=== PATIENT | female | born 1985 | race Caucasian/White ===

== ENCOUNTER 2021-02-25 12:06 | Outpatient (CLI) | payer BC, SELFPAY ==
[2021-02-25 12:21] LABS: Basophils Absolute Auto 0.1 K/mm3 (0.0-0.1); Basophils Percent Auto 0.6 % (0.2-1.2); Eosinophils Absolute Auto 0.1 K/mm3 (0-0.3); Eosinophils Percent Auto 0.8 % (0-4.4); Hematocrit 39.9 % (37.0-47.0); Hemoglobin 12.9 g/dL (12.0-15.0); Immature Granulocyte Absolute 0.02 K/mm3 (0.00-0.031); Immature Granulocyte Percent A 0.2 % (0-0.5); Lymphocytes Absolute Auto 2.41 K/mm3 (0.9-3.2); Mean Corpuscular HGB Conc 32.3 g/dl (32-36); Mean Corpuscular Hemoglobin 30.8 pg (26-34); Mean Corpuscular Volume 95.2 fl (80-100); Mean Platelet Volume 9.1 fl (7.4-10.4); Monocytes Absolute Auto 0.6 K/mm3 (0.1-0.6); Monocytes Percent Auto 6.4 % (2.6-8.5); Neutrophils Absolute Auto 5.5 K/mm3 (1.3-6.7); Platelet Count Result 256 k/mm3 (150-375); Red Blood Count 4.19 M/mm3 (4.2-5.4); Red Cell Distribution Width 11.9 % (11.5-14.5); White Blood Count 8.6 K/mm3 (4.5-10.0)
[2021-02-25 12:33] LABS: Alanine Aminotransferase 13 U/L (4-35); Albumin Level 4.5 g/dL (3.5-5.1); Alkaline Phosphatase 61 U/L (38-126); Amylase 65 U/L (30-110); Anion Gap 9 mmol/L (8-16); Aspartate Amino Transferase 30 U/L (14-36); Bilirubin,Total 0.4 mg/dL (0.2-1.3); Blood Urea Nitrogen 7 mg/dL (7-17); Calcium 9.3 mg/dL (8.4-10.2); Carbon Dioxide 26 mmol/L (22-30); Chloride 105 mmol/L (98-107); Estimated Glomerular Filt Rate > 60; Glucose 85 mg/dL (65-105); Lipase 73 U/L (23-300); Potassium 4.2 mmol/L (3.4-5.0); Sodium 140 mmol/L (137-145)
== END 2021-02-25 12:07 | disposition home or self-care (01) ==
PROVIDERS: PCP Family Medicine; Visit Provider Nurse Practitioner Family
DX: R10.13 Epigastric pain (principal)
CPT/HCPCS: 36415; 80053; 82150; 83690; 85025

== ENCOUNTER 2021-02-25 12:26 | Outpatient (CLI) | payer BC, SELFPAY ==
--- NOTE | ~2021-02-25 | US_ITS ---
EXAMINATION: US abdomen complete DATE: 02/25/2021 13:11 INDICATION: Epigastric pain TECHNIQUE: Multiple grayscale and Doppler ultrasound images of the abdomen were obtained. COMPARISON: None available FINDINGS: The head and body of the pancreas are normal. The pancreatic tail is obscured by bowel gas. The liver is normal with normal echogenicity and echotexture. No surface nodularity. Normal hepatope kurtis flow in the main portal vein. The gallbladder is normal with no abnormal wall thickening, pericho lecystic fluid or stones. The normal common bile duct measures 5 mm. There was no sonographic Aguirre sign. The visualized portions of the aorta and inferior vena cava are normal. The right kidney measures 10.3 x 4.2 x 3.8 cm. The left kidney measures 9.9 x 4.3 x 5.3 cm. The kidne ys demonstrate normal parenchymal echogenicity. There is no hydronephrosis. The spleen is normal in a ppearance and measures 9.7 cm. IMPRESSION: 1. No sonographic correlate for the patient's symptoms. Reviewed, dictated and finalized at location A.
== END 2021-02-25 12:27 | disposition home or self-care (01) ==
LOC: ANHIMG 12:27
PROVIDERS: PCP Family Medicine; Visit Provider Nurse Practitioner Family
DX: R10.13 Epigastric pain (principal)
CPT/HCPCS: 76700

== ENCOUNTER 2022-04-10 09:47 | Outpatient (CLI) | payer BC, SELFPAY ==
[2022-04-10 11:28] LABS: Anion Gap 7 mmol/L (8-16); Blood Urea Nitrogen 9 mg/dL (7-17); Calcium 9.2 mg/dL (8.4-10.2); Carbon Dioxide 28 mmol/L (22-30); Chloride 100 mmol/L (98-107); Cholesterol 192 mg/dL (0-200); Estimated Glomerular Filt Rate > 60; Glucose 91 mg/dL (65-110); HDL Direct 96 mg/dL; Sodium 135 mmol/L (137-145); Triglycerides 63 mg/dL (<150)
[2022-04-10 11:36] LABS: Hemoglobin A1C 4.9 % (<5.7)
[2022-04-10 11:39] LABS: LDL Cholesterol Direct 66 mg/dL
[2022-04-10 11:58] LABS: Thyroid Stimulating Hormone 0.732 uIU/mL (0.465-4.680)
== END 2022-04-10 09:48 | disposition home or self-care (01) ==
PROVIDERS: PCP Family Medicine; Visit Provider Nurse Practitioner Family
DX: Z13.220 Encounter for screening for lipoid disorders (principal); Z13.1 Encounter for screening for diabetes mellitus; Z13.29 Encounter for screening for other suspected endocrine disorder
CPT/HCPCS: 36415; 80048; 80061; 83036; 84443

== ENCOUNTER 2022-09-03 15:58 | Outpatient (CLI) | payer BC, SELFPAY ==
--- NOTE | ~2022-09-03 | XR_ITS ---
EXAMINATION: XR chest 2V DATE: 09/03/2022 16:18 INDICATION: Chronic cough and shortness of breath TECHNIQUE: PA and lateral views of the chest are obtained. COMPARISON: None available FINDINGS: The lungs are free of acute opacities. No pleural effusion or pneumothorax. The cardiomedia stinal silhouette is normal. There is mild thoracic spondylosis. IMPRESSION: 1. No acute cardiopulmonary abnormality. Reviewed, dictated and finalized at location L. TMASTER
== END 2022-09-03 15:59 | disposition home or self-care (01) ==
PROVIDERS: PCP Family Medicine; Visit Provider Physician Assistant Medical
DX: R05.3 Chronic cough (principal)
CPT/HCPCS: 71046

== ENCOUNTER 2022-11-02 15:21 | Outpatient (CLI) | payer OTHER, SELFPAY ==
--- NOTE | ~2022-11-02 | US_ITS ---
US venous doppler [facility] DATE: 11/02/2022 16:12 INDICATION: Localized edema TECHNIQUE: Real-time and color flow imaging and Doppler analysis of the veins of the lower extremitie s COMPARISON: None FINDINGS: There is minimal thrombus along the anterior wall of the right common femoral vein but the lumen is largely patent, with normal augmentation and color flow signal otherwise. There is spontaneous and phasic flow, normal augmentation and color flow signal and normal compressio n of the deep veins of both lower extremities otherwise. The greater saphenous veins are patent. IMPRESSION: Minimal thrombus, possibly chronic, along the anterior wall of the right common femoral v ein without significant luminal stenosis No deep venous thrombosis of the lower extremities is noted otherwise Reviewed, dictated and finalized at Location A. Reviewed, dictated and finalized at location B. SIZE MACHINE OPERATOR IMPRESSION: Minimal thrombus, possibly chronic, along the anterior wall of the right common femoral vein without significant luminal stenosis No deep venous thrombosis of the lower extremities is noted otherwise
== END 2022-11-02 15:22 | disposition home or self-care (01) ==
LOC: ANHIMG 15:27
PROVIDERS: PCP Family Medicine; Visit Provider Nurse Practitioner Family
DX: R60.0 Localized edema (principal); I82.411 Acute embolism and thrombosis of right femoral vein
CPT/HCPCS: 93970

== ENCOUNTER 2022-12-19 08:55 | Outpatient (CLI) | payer OTHER, BC, SELFPAY ==
[2022-12-19 10:27] LABS: Anion Gap 4 mmol/L (8-16); Blood Urea Nitrogen 8 mg/dL (7-17); Calcium 9.6 mg/dL (8.4-10.2); Carbon Dioxide 34 mmol/L (22-30); Chloride 101 mmol/L (98-107); Estimated Glomerular Filt Rate > 60; Glucose 104 mg/dL (65-110); Sodium 139 mmol/L (137-145)
== END 2022-12-19 08:56 | disposition home or self-care (01) ==
LOC: ANHLAB 09:02
PROVIDERS: PCP Family Medicine; Visit Provider Nurse Practitioner Family
DX: R25.2 Cramp and spasm (principal)
CPT/HCPCS: 36415; 80048; 83735

== ENCOUNTER 2023-04-10 14:34 | Outpatient (CLI) | payer SELFPAY ==
--- NOTE | ~2023-04-10 | US_ITS ---
EXAMINATION: US venous doppler [facility] DATE: 04/10/2023 15:16 INDICATION: I82.90 - Acute embolism and thrombosis of unspecified vein . TECHNIQUE: Grayscale images without and with compression and Doppler images of the bilateral lower ex tremity veins were obtained. COMPARISON: 11/02/2022. FINDINGS: The right common femoral vein, profunda (deep) femoral vein, femoral vein, popliteal vein, peroneal v ein, posterior tibial veins, gastrocnemius vein, and greater saphenous vein are patent. The left common femoral vein, profunda (deep) femoral vein, femoral vein, popliteal vein, peroneal v ein, posterior tibial veins, gastrocnemius vein, and greater saphenous vein are patent. IMPRESSION: Patent bilateral lower extremity veins. No evidence of deep venous thrombosis. Reviewed, dictated and finalized at location K.
== END 2023-04-10 14:35 | disposition home or self-care (01) ==
PROVIDERS: PCP Family Medicine; Visit Provider Nurse Practitioner Family
DX: I82.90 Acute embolism and thrombosis of unspecified vein (principal)
CPT/HCPCS: 93970

== ENCOUNTER 2023-11-04 11:29 | Outpatient (CLI) | payer BC, SELFPAY ==
[2023-11-04 13:18] LABS: HIV 1/2 Ab P24 Ag Result Negative (Negative)
[2023-11-04 13:48] LABS: Hepatitis B Surface Antigen Negative (Negative)
[2023-11-04 14:05] LABS: Hepatitis C Virus Antibody Negative (Negative)
[2023-11-04 15:53] LABS: Rapid Plasma Reagin Non-Reactive (NonReactive)
== END 2023-11-04 11:30 | disposition home or self-care (01) ==
LOC: ANHLAB 11:30
PROVIDERS: PCP Family Medicine; Visit Provider Nurse Practitioner Family
DX: Z11.3 Encounter for screening for infections with a predominantly sexual mode of transmission (principal)
CPT/HCPCS: 36415; 86592; 86703; 86803; 87340; G0432

== ENCOUNTER 2024-09-10 09:09 | Outpatient (CLI) | payer BC, SELFPAY ==
--- NOTE | ~2024-09-10 | XR_ITS ---
EXAMINATION: XR chest 2V DATE: 09/10/2024 09:19 INDICATION: Tachycardia TECHNIQUE: frontal view of the chest was obtained. COMPARISON: Chest radiograph dated 09/03/2022 FINDINGS: The lungs remain clear with no focal airspace opacities, pulmonary edema, pleural effusion or pneumot horax. The cardiomediastinal silhouette is normal. Visualized bones and soft tissues are unremarkable . IMPRESSION: 1. No acute cardiopulmonary disease. Reviewed, dictated and finalized at location B. E ROOM OPERATOR
== END 2024-09-10 09:10 | disposition home or self-care (01) ==
LOC: MICIMG 09:11
PROVIDERS: PCP Family Medicine; Visit Provider Nurse Practitioner Family
DX: R00.0 Tachycardia, unspecified (principal); R07.89 Other chest pain
CPT/HCPCS: 71046

== ENCOUNTER 2025-06-29 15:44 | Outpatient (CLI) | payer BC, SELFPAY ==
--- NOTE | ~2025-06-29 | XR_ITS ---
EXAMINATION: XR knee RT 3V, 06/29/2025 16:03 [employer]IL WALKER HISTORY: M25.361 - Other instability, right knee COMPARISON: No comparisons available. Findings: No acute fracture or malalignment. No significant degenerative changes. Soft tissues unremarkable. Impression: No acute fracture or malalignment. Reviewed, dictated and finalized at location P. WALKER Impression: No acute fracture or malalignment.
== END 2025-06-29 15:45 | disposition home or self-care (01) ==
LOC: MICIMG 15:46
PROVIDERS: PCP Family Medicine; Visit Provider Nurse Practitioner Adult Health
DX: M25.361 Other instability, right knee (principal); S89.91XA Unspecified injury of right lower leg, initial encounter; X58.XXXA Exposure to other specified factors, initial encounter
CPT/HCPCS: 73562